=== PATIENT | female | born 1950 | race African-American/Black ===

== ENCOUNTER 2017-12-29 11:32 | Observation (INO) | payer OTHER ==
[~2017-12-29] VITALS: Ht 154.9 cm; Wt 152.9 kg
[~2017-12-29 11:32] MED LIST: ALBUTEROL SULF8.5 GM IH; AMLODIPINE BESY10 MG PO; AMLODIPINE BESYL5 MG PO; ASMANEX TW200 MICRO1 IH; ASPERDRINK81 MG PO; ASPIR-TRIN325 M1 PO; ASPIRIN325 MG PO; ASPIRIN81 M2 PO; AUSTRALIAN DREAM TP; B-12500 MC1 PO; Bentyl PO; CARAFATE1 GM PO; CENTRUM SILVER1 EAC4 PO; CIPRO500 MG PO; COZAAR100 MG PO; COZAAR25 MG PO; CYANOCOBALAM1000 MCG PO; Cozaar PO; EFFIENT10 MG PO; Ecotrin PO; Effient PO; FLOVENT; HYDROCODON-ACE1 EAC7 PO; ICY HOT CREAM35.4 G1 TP; IMDUR30 MG PO; IMDUR60 MG PO; INDOMETHACIN50 MG PO; ISOSORBIDE MONO30 MG PO; ISOSORBIDE MONO60 MG; Imdur PO; LIPITOR80 MG PO; LO-DOSE ASPIRIN81 M1 PO; LOPRESSOR25 MG PO; LOSARTAN POTAS100 MG PO; LUNESTA3 MG PO; Lipitor PO; Lopressor PO; METOPROLOL SUCC25 MG PO; METOPROLOL TART25 MG PO; MOBIC15 MG PO; NITRO; NITROSTAT0.4 MG SL; NORVASC10 MG PO; Nitrostat,NitroQuick SL; Norvasc PO; OCEAN NASAL 0.645 ML BOTH NARES; PANTOPRAZOLE SO40 MG PO; PREDNISONE20 MG PO; PROAIR HFA8.5 GM IH; PROTONIX40 MG PO; PROVENTIL,2.5 MG/3 M IH; Protonix PO; Proventil,Ventolin H IH; TAGAMET; TOPROL XL6.25 MG PO; TRAMADOL HCL50 MG PO; TYLENOL EXTRA500 MG PO; TYLENOL REGULA325 MG PO; TYLENOL WITH C1 EACH PO; Toprol XL PO; Tylenol Regular Stre PO; Ultram PO; VISINE A.C300 DROP/1 BOTH EYES; VITAMIN D22000 UNIT PO; VITAMIN D31000 UNI2 PO; VITAMIN K240 MCG PO; VOLTAREN 1% GE100 GM TP; ZINC50 M3 PO; ZITHROMAX TRI-500 MG PO; [UNRECOGNIZED DRUG - REMARK]; [UNRECOGNIZED DRUG - REMARK]
[2017-12-29 12:31] LABS: HEMATOCRIT 41.2 % (36.0-46.0); HEMOGLOBIN 13.1 G/DL (11.9-15.5); MCH 31.3 PG (29.0-34.0); MCHC 31.8 G/DL (30.0-36.0); MCV 98.3 FL (83-99); PLATELET COUNT 244 K/uL (156-360); RBC DIS.WIDTH-SD 50.7 % (39-53); RED BLOOD COUNT 4.19 M/uL (3.80-5.20); WHITE BLOOD COUNT 4.4 K/uL (4.1-10.2)
[2017-12-29 12:39] LABS: CHLORIDE 108 mEq/L (99-109); POTASSIUM 4.2 mEq/L (3.7-5.4); SODIUM 145 mEq/L (136-147)
[2017-12-29 12:40] LABS: GLUCOSE 116 mg/dL (70-99)
[2017-12-29 12:44] LABS: CREATININE 1.5 mg/dL (0.6-1.3); GFR ESTIMATE (CALCULATED) 44 mL/min/
[2017-12-29 12:45] LABS: UREA NITROGEN (BUN) 17 mg/dL (9-23)
[2017-12-29 12:51] LABS: TROP-I INTERPRETATION NEGATIVE; TROPONIN-I 0.01 ng/mL (0.0-0.30)
[2017-12-29] MEDS ORDERED: TYLENOL ARTHRI650 MG PO (15:55)
[2017-12-29] MEDS ORDERED: ERGOCALCIF50000 UNIT PO (15:56)
[2017-12-29] MEDS ORDERED: FUROSEMIDE20 MG PO (15:56)
[2017-12-29] MEDS ORDERED: IMDUR30 MG PO (15:57)
[2017-12-29] MEDS ORDERED: ATORVASTATIN CA80 MG PO (15:57)
[2017-12-29] MEDS ORDERED: PANTOPRAZOLE SO40 MG PO (15:58)
[2017-12-29] MEDS ORDERED: ASCORBIC ACID500 M3 PO (16:03)
[2017-12-29 16:21] VITALS: BP 113/76
[2017-12-29 19:51] LABS: TROP-I INTERPRETATION NEGATIVE; TROPONIN-I < 0.01 ng/mL (0.0-0.30)
[2017-12-30 00:04] VITALS: BP 114/59
[2017-12-30 01:27] LABS: TROP-I INTERPRETATION NEGATIVE; TROPONIN-I < 0.01 ng/mL (0.0-0.30)
[2017-12-30 04:31] VITALS: BP 102/54
[2017-12-30 06:30] LABS: CHLORIDE 105 MEQ/L (99-109); CREATININE 1.7 MG/DL (0.6-1.3); GFR ESTIMATE (CALCULATED) 38 mL/min/; GLUCOSE 103 mg/dL (70-99); POTASSIUM 3.8 MEQ/L (3.7-5.4); SODIUM 142 MEQ/L (136-147)
[2017-12-30 06:32] LABS: UREA NITROGEN (BUN) 26 mg/dL (9-23)
[2017-12-30 08:02] VITALS: BP 110/52
[2017-12-30 11:24] VITALS: BP 136/63
[2017-12-30 15:24] VITALS: BP 128/76
== END 2017-12-30 16:33 | disposition home or self-care (01) ==
LOC: EME 11:32 → EDOF 14:33 → ENRESERV 14:36 → 5WEST 16:10
PROVIDERS: Internal Medicine
DX: R07.9 Chest pain, unspecified (principal); R10.11 Right upper quadrant pain; K76.0 Fatty (change of) liver, not elsewhere classified; N28.1 Cyst of kidney, acquired; N17.9 Acute kidney failure, unspecified; E66.01 Morbid (severe) obesity due to excess calories; Z68.44 Body mass index [BMI] 60.0-69.9, adult; I25.10 Atherosclerotic heart disease of native coronary artery without angina pectoris; I25.2 Old myocardial infarction; Z95.5 Presence of coronary angioplasty implant and graft; G47.33 Obstructive sleep apnea (adult) (pediatric); J45.909 Unspecified asthma, uncomplicated; I10 Essential (primary) hypertension; Z88.0 Allergy status to penicillin; Z88.1 Allergy status to other antibiotic agents; Z88.2 Allergy status to sulfonamides; Z88.8 Allergy status to other drugs, medicaments and biological substances; Z91.041 Radiographic dye allergy status
CPT/HCPCS: 71046; 76705; 80048; 84484; 85027; 93005; 99281; 99285; G0378; J1650; J2405; J7040

== ENCOUNTER 2018-01-01 13:47 | Observation (INO) | payer OTHER ==
[~2018-01-01] VITALS: Ht 154.9 cm; Wt 157.0 kg
[~2018-01-01 13:47] MED LIST changes: +ASCORBIC ACID500 M3 PO; +ATORVASTATIN CA80 MG PO; +ERGOCALCIF50000 UNIT PO; +FUROSEMIDE20 MG PO; +TYLENOL ARTHRI650 MG PO
[2018-01-01 15:01] LABS: BASOPHIL (%) 0.7 % (0-1); EOSINOPHIL (%) 2.6 % (0-5); EOSINOPHIL COUNT 0.1 K/uL (0-0.3); HEMATOCRIT 40.6 % (36.0-46.0); HEMOGLOBIN 12.8 G/DL (11.9-15.5); IMMATURE GRANULOCYTE (%) 0.7 % (0.0-0.7); LYMPHOCYTE (%) 29.9 % (15-42); LYMPHOCYTE COUNT 1.4 K/uL (1.0-2.8); MCH 31.2 PG (29.0-34.0); MCHC 31.5 G/DL (30.0-36.0); MONOCYTE (%) 10.4 % (3-12); MONOCYTE COUNT 0.5 K/uL (0-0.8); NEUTROPHIL (%) 55.7 % (45-76); NEUTROPHIL COUNT 2.6 K/uL (1.8-6.4); PLATELET COUNT 226 K/uL (156-360); RBC DIS.WIDTH-CV 13.8 % (11.8-14.6); RBC DIS.WIDTH-SD 49.9 % (39-53); WHITE BLOOD COUNT 4.6 K/uL (4.1-10.2)
[2018-01-01 15:12] LABS: ALBUMIN 3.5 g/dL (3.2-4.8); CHLORIDE 107 mEq/L (99-109); POTASSIUM 4.1 mEq/L (3.7-5.4); SODIUM 146 mEq/L (136-147)
[2018-01-01 15:14] LABS: GLUCOSE 130 mg/dL (70-99); TOTAL PROTEIN 6.5 g/dL (6.4-8.3)
[2018-01-01 15:16] LABS: TOTAL BILIRUBIN 0.6 mg/dL (0.0-1.0)
[2018-01-01 15:18] LABS: ALKALINE PHOSPHATASE 59 IU/L (3-129); CREATININE 1.4 mg/dL (0.6-1.3); GFR ESTIMATE (CALCULATED) 48 mL/min/
[2018-01-01 15:19] LABS: AST (GOT) 26 IU/L (2-34); UREA NITROGEN (BUN) 18 mg/dL (9-23)
[2018-01-01 15:20] LABS: DIRECT BILIRUBIN 0.4 mg/dL (0.0-0.3)
[2018-01-01 15:21] LABS: ALT (GPT) 32 IU/L (3-49); LIPASE 21 U/L (1.0-51.0)
[2018-01-01 15:27] LABS: TROP-I INTERPRETATION NEGATIVE; TROPONIN-I 0.02 ng/mL (0.0-0.30)
[2018-01-01 16:56] LABS: APPEARANCE CLEAR ((CLEAR)); BILIRUBIN NEGATIVE; BLOOD NEGATIVE; COLOR YELLOW ((YELLOW)); GLUCOSE (STRIP) NEGATIVE; KETONES NEGATIVE; LEUKOCYTES NEGATIVE; NITRITE NEGATIVE; PROTEIN (STRIP) NEGATIVE; SPECIFIC GRAVITY 1.013 (1.000-1.030); UCUL ADDED? NO; UROBILINOGEN 0.2 MG/DL (0.2-1.0)
[2018-01-01] MEDS ORDERED: FUROSEMIDE20 MG PO (18:20)
[2018-01-01] MEDS ORDERED: IMDUR30 MG PO (18:21)
[2018-01-01] MEDS ORDERED: ATORVASTATIN CA80 MG PO (18:21)
[2018-01-01 20:11] VITALS: BP 145/65
[2018-01-02 00:14] VITALS: BP 103/51
[2018-01-02 02:42] LABS: TROP-I INTERPRETATION NEGATIVE; TROPONIN-I < 0.01 ng/mL (0.0-0.30)
[2018-01-02 04:39] VITALS: BP 115/60
[2018-01-02 08:35] VITALS: BP 114/70
[2018-01-02 10:29] LABS: TROP-I INTERPRETATION NEGATIVE; TROPONIN-I < 0.01 ng/mL (0.0-0.30)
[2018-01-02 11:38] VITALS: BP 105/56
[2018-01-02 13:52] VITALS: BP 121/58
== END 2018-01-02 16:15 | disposition home or self-care (01) ==
LOC: EME 13:47 → 5WEST 16:45 → EDOF 16:45 → ENRESERV 16:47 → 5WEST 20:06
PROVIDERS: Emergency Medicine; Internal Medicine
DX: R07.9 Chest pain, unspecified (principal); E66.01 Morbid (severe) obesity due to excess calories; Z68.44 Body mass index [BMI] 60.0-69.9, adult; I25.10 Atherosclerotic heart disease of native coronary artery without angina pectoris; Z95.5 Presence of coronary angioplasty implant and graft; G47.33 Obstructive sleep apnea (adult) (pediatric); I10 Essential (primary) hypertension; I25.2 Old myocardial infarction; J45.909 Unspecified asthma, uncomplicated; Z87.891 Personal history of nicotine dependence; Z86.73 Personal history of transient ischemic attack (TIA), and cerebral infarction without residual deficits; Z88.0 Allergy status to penicillin; Z88.1 Allergy status to other antibiotic agents; Z88.2 Allergy status to sulfonamides; Z88.6 Allergy status to analgesic agent; Z91.041 Radiographic dye allergy status
CPT/HCPCS: 71250; 74176; 80048; 80076; 81003; 83690; 84484; 85025; 87641; 93005; 99281; 99285; G0378; J1650